=== PATIENT | female | born 1965 | race Caucasian/White ===

== ENCOUNTER 2017-04-10 14:11 | Emergency (ER) | payer OTHER ==
[~2017-04-10] VITALS: Ht 160 cm; Wt 72.4 kg
[~2017-04-10 14:11] MED LIST: CHEMO DRUG; FLUT16SP2 NAS; HYDR-3237 PO; Hydromorphone Hcl PO; LEVO500T47 PO; LORA1TAB PO; MONT10TA6 PO; NAPR220C2 PO; ONDA4TAB13 SL; POLY17PO5 PO; TRAM-47 PO
[2017-04-10 14:36] VITALS: BP 138/91
[2017-04-10] MEDS ORDERED: KETOROLAC 30 MG/1 ML ONE (15:14)
[2017-04-10 15:18] LABS: HEMATOCRIT 43.2 % (34.6-47.8); HEMOGLOBIN 14.6 g/dL (11.7-16.4); WHITE BLOOD COUNT 5.1 x10^3/uL (3.4-10)
[2017-04-10 15:28] LABS: BLOOD UREA NITROGEN 22 mg/dL (7-18)
[2017-04-10] MEDS ORDERED: KETOROLAC 30 MG/1 ML IM ONE (15:30)
== END 2017-04-10 16:05 | disposition home or self-care (01) ==
LOC: ED 15:30
DX: M79.641 Pain in right hand (principal); Z88.5 Allergy status to narcotic agent; Z85.51 Personal history of malignant neoplasm of bladder
CPT/HCPCS: 36415; 73130; 80048; 82040; 84550; 85025; 96372; 99285; J1885

== ENCOUNTER 2018-02-19 19:04 | Emergency (ER) | payer OTHER ==
[~2018-02-19] VITALS: Ht 160 cm; Wt 74.5 kg
[2018-02-19 19:21] VITALS: BP 126/86
[2018-02-19] MEDS ORDERED: DEXAMETHASONE 4 MG TABLET ONE (19:40)
[2018-02-19] MEDS ORDERED: DEXAMETHASONE 4 MG TABLET PO ONE (20:00)
== END 2018-02-19 20:27 | disposition home or self-care (01) ==
LOC: ED 20:21
DX: H10.13 Acute atopic conjunctivitis, bilateral (principal); J30.9 Allergic rhinitis, unspecified
CPT/HCPCS: 99283